=== PATIENT | female | born 1990 | race Two or more races ===

== ENCOUNTER 2020-12-24 12:22 | Emergency (ER) | payer OTHER ==
[~2020-12-24] VITALS: Ht 154.9 cm; Wt 76.6 kg
--- NOTE | 2020-12-24 12:40 | PHYS DOC ---
Past History Past Medical History: No Pertinent History (LALIT RAYA APRN) Past Surgical History: Other Additional Past Surgical Histo: wisdom teeth (LALIT RAYA APRN) Alcohol Use: None (LALIT RAYA APRN) Adult General Chief Complaint Chief Complaint: VAGINAL BLEEDING [place] [facility] [employer] [facility] HPI Patient is a 30-year-old female presents to the emergency department complaining of vaginal bleeding that started while she was at work this morning at 6 AM. Patient also states she is experiencing low pelvic cramping that started at 6 AM this morning as well, reports this cramping consistent with normal menstrual cycle discomfort. Patient reports her pelvic cramping discomfort a 7/10 on a 1- 10 pain scale. Patient noticed brown vaginal discharge when she wiped after urination this morning. Patient states she became concerned when the discharge on the toilet paper turned from light brown to pink in color. Patient denies passing any clots or tissue vaginally. Patient denies vaginal irritation. Patient denies pain, increase urinary frequency, or pressure with urination. Patient states she does not see any blood or discoloration to her urine. Patient reports her last normal menstrual cycle was November 092020 normal duration of flow. Patient states this would be her first . Patient states she had a positive test this past Wednesday. Patient denies any sexually transmitted disease concerns. Patient denies recent fever or chills, headaches, visual changes, cough, chest congestion or nasal congestion, chest pains, abdominal pains, nausea, vomiting, diarrhea, or constipation. Patient states she does feel short of breath that started around 6:00 this morning as well. Patient denies being exposed to the COVID-19 virus. Patient denies cigarette smoking, alcohol consumption, or illicit drug use. Patient denies any other physical complaints or physical concerns. (LALIT RAYA APRN) Review of Systems Review of Systems 14 body systems of review of systems have been reviewed. See HPI for pertinent positives and negative responses, otherwise all other systems are negative, nonpertinent or noncontributory. (LALIT RAYA APRN) Allergies Allergies Allergies Coded Allergies Type Severity Reaction Last Updated Verified No Known Drug Allergies 12/24/20 No (LALIT RAYA APRN) Physical Exam Physical Exam Constitutional: Well developed, well nourished, no acute distress, non-toxic appearance. 30-year-old female no apparent distress. HENT: Normocephalic, atraumatic, bilateral external ears normal, oropharynx moist, no oral exudates, nose normal. Eyes: PERRLA, EOMI, conjunctiva normal, no discharge. Neck: Normal range of motion, no tenderness, supple, no stridor. Cardiovascular:Heart rate regular rhythm, no murmur, heart sounds S1-S2 to auscultation. Lungs & Thorax: Bilateral breath sounds clear to auscultation, no adventitious lung sounds appreciated. Abdomen: Bowel sounds normal, soft, no tenderness, no masses, no pulsatile ma sses. Skin: Warm, dry, no erythema, no rash. Back: No tenderness, no CVA tenderness. Extremities: No tenderness, no cyanosis, no clubbing, ROM intact, no edema. Neurologic: Alert and oriented X 3, normal motor function, normal sensory function, no focal deficits noted. Psychologic: Affect normal, judgement normal, mood normal : 8 pelvic examination was performed with female RN escort, external vagina and additional structures within normal limits, no lesions, no rashes, no erythema appreciated. Speculum exam within normal limits, no concerning findings, no lesions, erythema, only scant light brown discharge appreciated, th e cervical os was closed, no bright red bleeding or other bleeding appreciated. Wet prep and GC/chlamydia cultures were obtained. Bimanual exam no adnexal tenderness, no cervical motion tenderness appreciated. (LALIT RAYA APRN) Current Patient Data Vital Signs Vital Signs Date Time Temp Pulse Resp B/P (MAP) Pulse Ox O2 Delivery O2 Flow Rate FiO2 12/24/20 12:30 99 18 124/81 (95) 99 Room Air (LALIT RAYA APRN) EKG EKG EKG performed at 1250 by house respiratory therapy staff, shows a normal sinus rhythm with a heart rate of 78 bpm, IN interval 0.138, QTc interval 0.439, no acute STEMI, no acute ischemia, no ACS appreciated, EKG interpreted by ED attending physician Dr. Amin. (LALIT RAYA APRN) Radiology/Procedures Radiology/Procedures PATIENT: AGUSTINA SMILEY ACCOUNT: [id number] : 1990 LOCATION: ER AGE: 30 SEX: F EXAM STATUS: REG ER ORD. PHYSICIAN: LALIT RAYA APRN REASON: VAGINAL BLEEDING, RT SIDE PELVIC PAIN, APPROX 6 WEEKS GESTATION PROCEDURE: OB <14 WKS W/TV EXAM: Obstetrics sonogram. HISTORY: Vaginal bleeding. TECHNIQUE: Sonographic imaging of the pelvis was performed. COMPARISON: None. FINDINGS: The uterus measures 7.2 x 4.6 x 4.1 cm. There is a fluid collection within the endometrial cavity, the appearance of which favors an early gestational sac. The mean sac diameter is 6 mm, corresponding with a gestational age of 5 weeks and 2 days. No yolk sac or pole is seen. There is no evide nce of a subchronic hematoma. The gestational sac is normal in consideration and location. The left ovary is obscured due to bowel gas. The right ovary is unremarkable. There is a nabothian cyst within the cervix. IMPRESSION: 1. Suspected early gestational sac in expected position with a mean sac diameter corresponding with a gestational age of 5 weeks and 2 days. No yolk sac or pole is seen at this early gestation. There is also no beta-hCG level for correlation. Correlation with serial beta-hCG levels and sonographic follow-up in approximately 2 weeks to confirm viability and exclude a pseudosac in the setting of ectopic gestation or blighted ovum is recommended. 2. Obscured left ovary. Electronically signed by: Mindy Rehman MD (12/24/2020 2:14 PM) [facility] DICTATED AND SIGNED BY: MINDY REHMAN MD DATE: 12/24/201410 CC: LALIT RAYA APRN; PCP,UNKNOWN ~MTH0 0 (LALIT RAYA APRN) Heart Score C/O Chest Pain: No Risk Factors: Risk Factors: DM, Current or recent (<one month) smoker, HTN, HLP, family history of CAD, obesity. Risk Scores: Risk Factors: DM, Current or recent (<one month) smoker, HTN, HLP, family history of CAD, obesity. (LALIT RAYA APRN) Course & Med Decision Making Course & Med Decision Making Pertinent Labs and Imaging studies reviewed. (See chart for details) 30-year-old female, vital signs reviewed, presents emergency department concerning low pelvic cramping and vaginal bleeding with . Patient is approximately 6 weeks for last menstrual cycle. Will order transvaginal ultrasound, quantitative beta-hCG, type and screen for RhoGam study, CBC, CMP, EKG and chest x-ray for reported shortness of breath. Will perform pelvic examination after transvaginal ultrasound. Patient has refused her chest x-ray, discussed reason for ordering chest x-ray for her complaint of shortness of breath, patient states she does not feel so short of breath now, patient states she does not want any unnecessary radiation while she is . Transvaginal ultrasound revealed early intrauterine per house radiologist rotation, no other concerning findings, patient's beta-hCG level 3685, wet prep and GC/chlamydia pending at this time, low likelihood of positive results. Will recommend pelvic rest, follow-up with her [facility] [employer] appointment on 07 January for repeat beta hCG level return to ER precautions and concerns to include increased vaginal bleeding or cramping. Will call patient and call in prescription for vaginal cultures if wet prep results positive today. Wet prep study negative for clue cells, negative for yeast cells. GC and Chlamydia pending at this time. Patient gave verbal understanding of discharge home instructions, strict follow- up instructions with [facility] [employer] [facility] on the of this month, pelvic rest, return to ER precautions and concerns, increase fluids, start vitamin today, patient had no further questions or concerns and was discharged home without incident. Diagnosis threatened miscarriage, low likelihood of sexually transmitted diseases. (LALIT RAYA APRN) Dragon Disclaimer Dragon Disclaimer This electronic medical record was generated, in whole or in part, using a voice recognition dictation system. (LALIT RAYA APRN) Departure Departure: Impression: Primary Impression: Threatened miscarriage in early Disposition: HOME / SELF CARE / HOMELESS Condition: GOOD Referrals: PCP,UNKNOWN (PCP) Patient Instructions: Vaginal Bleeding During , First Trimester Additional Instructions: You were evaluated today for vaginal bleeding and early , a ultrasound was performed which found an early intrauterine , your beta hCG level was 3685 today, as we discussed please give this number to your [employer] [employer]SEL[facility] specialist so that they may repeat this test and further evaluation on your upcoming appointment on 07 January. We had discussed pelvic rest, increase fluids, and starting on vitamin. Please return to the emergency department for worsening symptoms or other concerns. I have given you 1 day off of work as you have requested. EMERGENCY DEPARTMENT GENERAL DISCHARGE INSTRUCTIONS Thank you for coming to [facility] (ED) today and trusting us with you care. We trust that you had a positivie experience in our Emergency Department. If you wish to speak to the department management, you may call the director at [phone]. YOUR FOLLOW UP INSTRUCTIONS ARE FOLLOWS: 1. Do you have a private Doctor? If you do not have a private doctor, please ask for a resource list of physicians or clinics that may be able to assist you with follow up care. 2. The Emergency Physician has interpreted your x-rays. The X-Ray specialist will also review them. If there is a change in the findings, you will be notified in 48 hours when at all possible. 3. A lab test or culture has been done, your results will be reviewed and you will be notified if you need a change in treatment. ADDITIONAL INSTRUCTIONS AND INFORMATION: 1. Your care today has been supervised by a physician who is specially trained in emergency care. Many problems require more than one evaluation for a complete diagnosis and treatment. We recommend that you schedule your follow up appointment as recommended to ensure complete treatment of you illness or injury. If you are unable to obtain follow up care and continue to have a problem, or if your condition worsens, we recommend that you return to the ED. 2. We are not able to safely determine your condition over the phone nor are we able to give sound medical advice over the phone. For these safety reasons, if you call for medical advice we will ask you to come to the ED for further evaluation. 3. If you have any questions regarding these discharge instructions please call the ED at [phone]. SAFETY INFORMATION: In the interest of safety, wellness, and injury prevention; we encourage you to wear your sealbelt, if you smoke; quite smoking, and we encourage family to use a protective helmet for bicycling and other sporting events that present an increased risk for head injury. IF YOUR SYMPTOMS WORSEN OR NEW SYMPTOMS DEVELOP, OR YOU HAVE CONCERNS ABOUT YOUR CONDITION; OR IF YOUR CONDITION WORSENS WHILE YOU ARE WAITING FOR YOUR FOLLOW UP APPOINTMENT; EITHER CONTACT YOUR PRIMARY CARE DOCTOR, THE PHYSICIAN WHOSE NAME AND NUMBER YOU WERE GIVEN, OR RETURN TO THE ED IMMEDIATELY. Scripts Pnv Cmb#95/Ferrous Fumarate/Fa ( TABLET) 1 Each Tablet 1 TAB PO DAILY for for 30 Days, #30 TAB 0 Refills Prov: LALIT RAYA APRN 12/24/20 Attending Signature Attending Signature I have participated in the care of this patient and I have reviewed and agree with all pertinent clinical information above including history, exam, and recommendations. (MILY AMIN DO) LALIT RAYA APRN Dec 24, 2020 12:40 MILY AMIN DO Dec 25, 2020 06:18
[2020-12-24 13:32] LABS: BASO # 0.1 x10^3/uL (0.0-0.2); BASO % 1 % (0-3); EOS # 0.1 x10^3/uL (0.0-0.7); EOS % 1 % (0-3); HEMATOCRIT 38.9 % (36.0-47.0); HEMOGLOBIN 13.2 g/dL (12.0-15.5); LYMPH # 2.3 x10^3/uL (1.0-4.8); LYMPH % 27 % (24-48); MEAN CORPUSCULAR HEMOGLOBIN 31 pg (25-35); MEAN CORPUSCULAR HGB CONC 34 g/dL (31-37); MEAN CORPUSCULAR VOLUME 91 fL (79-100); MONO # 0.8 x10^3/uL (0.0-1.1); MONO % 10 % (0-9); NEUT # 5.2 x10^3uL (1.8-7.7); NEUT % 61 % (31-73); PLATELET COUNT 276 x10^3/uL (140-400); RED BLOOD COUNT 4.29 x10^6/uL (3.50-5.40); WHITE BLOOD COUNT 8.5 x10^3/uL (4.0-11.0)
[2020-12-24 13:50] LABS: CREATININE 0.6 mg/dL (0.6-1.0); GFR 117.4; POTASSIUM 3.7 mmol/L (3.5-5.1)
[2020-12-24 13:53] LABS: ALBUMIN 4.2 g/dL (3.4-5.0); ALBUMIN/GLOBULIN RATIO 1.2 (1.0-1.7); TOTAL BILIRUBIN 0.4 mg/dL (0.2-1.0); TOTAL PROTEIN 7.7 g/dL (6.4-8.2)
[2020-12-24 13:54] LABS: BARBITURATES NEG (NEG); BENZODIAZEPINES NEG (NEG); CANNABINOIDS POS (NEG); COCAINE NEG (NEG); METHADONE NEG (NEG); OPIATES NEG (NEG); PHENCYCLIDINE NEG (NEG)
[2020-12-24 13:55] LABS: AMPHETAMINE/METHAMPHETAMINE NEG (NEG)
[2020-12-24 13:59] LABS: BILIRUBIN,URINE NEG (NEG); CLARITY,URINE CLEAR; COLOR,URINE YELLOW; GLUCOSE,URINE NEG (NEG); NITRITE,URINE NEG (NEG); UROBILINOGEN,URINE 0.2 mg/dL (0.2 mg/dL)
[2020-12-24 14:00] LABS: BACTERIA,URINE FEW /HPF (0-FEW); RBC,URINE RARE /HPF (0-2); WBC,URINE RARE /HPF (0-4)
--- NOTE | 2020-12-24 14:17 | RAD ---
EXAM: Obstetrics sonogram. HISTORY: Vaginal bleeding. TECHNIQUE: Sonographic imaging of the pelvis was performed. COMPARISON: None. FINDINGS: The uterus measures 7.2 x 4.6 x 4.1 cm. There is a fluid collection within the endometrial cavity, the appearance of which favors an early gestational sac. The mean sac diameter is 6 mm, corre sponding with a gestational age of 5 weeks and 2 days. No yolk sac or pole is seen. There is no evidence of a subchronic hematoma. The gestational sac is normal in consideration and location. The left ovary is obscured due to bowel gas. The right ovary is unremarkable. There is a nabothian cyst w ithin the cervix. IMPRESSION: 1. Suspected early gestational sac in expected position with a mean sac diameter corresponding with a gestational age of 5 weeks and 2 days. No yolk sac or pole is seen at this early gestation. Th ere is also no beta-hCG level for correlation. Correlation with serial beta-hCG levels and sonographi c follow-up in approximately 2 weeks to confirm viability and exclude a pseudosac in the setting of e ctopic gestation or blighted ovum is recommended. 2. Obscured left ovary. Electronically signed by: Mindy Rubio MD (12/24/2020 2:14 PM) [facility]
--- NOTE | 2020-12-24 14:33 | EKG ---
[address] [address] Test Date: 2020-12-24 Test Time: 12:50:28 Pat Name: AGUSTINA SMILEY Department: Room: Gender: F [employer]: : 1990 Requested By: LALIT RAYA Order Number: [id number] Reading MD: Measurements Intervals [place] Rate: 78 P: 51 SD: 138 QRS: 33 QRSD: 82 T: 37 QT: 382 QTc: 439 Interpretive Statements SINUS RHYTHM NORMAL ECG RI6.02 No previous ECG available for comparison
[2020-12-24] MEDS ORDERED: PNV1TABL25 PO (15:37)
[2020-12-24 15:53] VITALS: BP 123/75
[2020-12-25 13:09] LABS: CHLAMYDIA PROBE Negative (Negative)
== END 2020-12-24 15:53 | disposition home or self-care (01) ==
LOC: ER 12:22
DX: O20.0 Threatened abortion (principal); Z3A.01 Less than 8 weeks gestation of pregnancy
CPT/HCPCS: 36415; 76801; 76817; 80053; 80307; 81001; 81025; 84702; 85025; 86850; 86900; 86901; 87491; 87591; 93005; 99285; Q0111